=== PATIENT | female | born 1980 | race Caucasian/White ===

== ENCOUNTER 2019-09-24 18:03 | Emergency (ER) | payer OTHER ==
[~2019-09-24] VITALS: Ht 162.6 cm; Wt 99.8 kg
[2019-09-24 18:51] LABS: INFLUENZA A ANTIGEN Negative (Negative); INFLUENZA B ANTIGEN Negative (Negative)
[2019-09-24 19:17] LABS: ABSOLUTE BASOPHILS 0.1 thou/uL (0.0-0.2); ABSOLUTE EOSINOPHILS 0.6 thou/uL (0.0-0.7); ABSOLUTE LYMPHOCYTES 2.3 thou/uL (0.8-5.3); ABSOLUTE MONOCYTES 0.6 thou/uL (0.0-1.2); ABSOLUTE NEUTROPHILS 9.4 thou/uL (1.6-8.1); BASOPHILS 0.5 %; EOSINOPHILS 4.7 %; HEMATOCRIT 40.7 % (37.0-47.0); HEMOGLOBIN 13.8 gm/dL (12.0-15.0); LYMPHOCYTES 17.6 %; MCH 29.8 pg (26.0-34.0); MCV 87.5 fL (80.0-100.0); MONOCYTES 4.8 %; MPV 7.6 fl. (7.2-11.1); NUCLEATED RBCS 0 /100WBC; PLATELET COUNT* 268 thou/uL (150-400); POLYS 72.4 %; RBC 4.65 mil/uL (4.20-5.00); WBC 12.9 thou/uL (4.0-11.0)
[2019-09-24 19:28] LABS: CALCIUM 8.5 mg/dL (8.5-10.1); CREATININE 1.1 mg/dL (0.6-1.3); POTASSIUM 3.8 mmol/L (3.5-5.1)
[2019-09-24 19:33] LABS: ALBUMIN 3.6 g/dL (3.4-5.0); TOTAL BILIRUBIN 0.2 mg/dL (<0.1-1.0); TOTAL PROTEIN 7.6 g/dL (6.4-8.2)
[2019-09-24] MEDS ORDERED: ONDANSETRON HCL4 M2 PO (21:09)
[2019-09-24] MEDS ORDERED: VENTOLIN HFA 1818 GM INH (21:09)
[2019-09-24] MEDS ORDERED: ZPAK PO (21:09)
[2019-09-24] MEDS ORDERED: MEDROLDOSEPACK PO (21:09)
[2019-09-24 21:19] VITALS: BP 171/94
--- NOTE | 2019-09-25 10:10 | EKG ---
[place] [address] ELECTROCARDIOGRAM REPORT Name: DUMONTJOSE Room: [facility]#: [id number] Admission: 09/24/19 Attend Phys: Discharge: 09/24/19 Date of : 84 Date of Service: 09/24/192014 Report #: [id number] THIS REPORT FOR: //name// [facility] ED Test Date: 2019-09-24 Test Time: 20:15:00 Pat Name: JOSE DUMONT Department: Room: Gender: Pharmacy Laboratory Technician: : [id number] Requested By: Gina Pro Order Number: [id number] MD: Indra Mancini Measurements Intervals [place] Rate: 110 P: 42 [place]: 143 QRS: -12 QRSD: 85 T: 27 QT: 331 QTc: 448 Interpretive Statements Sinus tachycardia No previous ECG available for comparison Electronically Signed On 09-25-2019 10:09:13 CDT by Indra Mancini [email or web address] <ELECTRONICALLY SIGNED> By: Indra Mancini MD, [facility] 09/25/19 1009 14 14 Indra Mancini MD, FACC /EPI
== END 2019-09-24 21:20 | disposition home or self-care (01) ==
LOC: M.ERS 18:03
PROVIDERS: Nurse Practitioner Family
DX: J06.9 Acute upper respiratory infection, unspecified (principal); R11.10 Vomiting, unspecified